=== PATIENT | male | born 1990 | race African-American/Black ===

== ENCOUNTER 2018-06-06 10:48 | Emergency (ER) | payer OTHER, MEDICAID ==
[~2018-06-06] VITALS: Ht 177.8 cm; Wt 73.0 kg
[2018-06-06] MEDS ORDERED: IBUPROFEN 800MG TABLET PO ONE (12:15)
[2018-06-06 14:34] VITALS: BP 164/99
== END 2018-06-06 14:37 | disposition home or self-care (01) ==
LOC: ER 10:48
DX: S40.011A Contusion of right shoulder, initial encounter (principal); Y35.813A Legal intervention involving manhandling, suspect injured, initial encounter; Y93.89 Activity, other specified; Y92.89 Other specified places as the place of occurrence of the external cause
CPT/HCPCS: 73030; 99284